=== PATIENT | female | born 1980 | race Caucasian/White ===

== ENCOUNTER 2024-06-16 14:23 | Outpatient (AMB) | payer MEDICAID, SELFPAY ==
[2024-06-16 14:35] VITALS: BP 116/81; PULSE 78; RESP 18; TEMP 36.9; O2SAT 97; BMI 42.7
--- NOTE | 2024-06-16 14:35 | ORTHONT_ITS ---
Vital signs 06/16/24 14:35 Height 1.78 m Height Method Stated Weight 134.972 kg Weight Measurement Method Standing Scale BMI 42.7 BP 116/81 Blood Pressure Source Automatic Cuff Blood Pressure Location Right Upper Arm Position Sitting Respiration 18 Pulse 78 Pulse Source Monitor Temp 98.5 F Temp Source Temporal Artery Scan Pulse Oximetry (%) 97 Oxygen Delivery Method Room Air Med/Allergies Allergies & Medications Allergies AUGMENTIN Allergy (Intermediate, Uncoded 06/16/24 14:37) HIVES PERCOCET Allergy (Intermediate, Uncoded 06/16/24 14:37) HIVES Medication Reconciliation levothyroxine 150 mcg capsule 150 mcg PO QDAY 02/14/24 [History Confirmed 06/16/24] rivaroxaban 15 mg tablet (Xarelto) 15 mg PO QDAY 06/16/24 [History Confirmed 06/16/24] Subjective Visit Visit for: follow up visit and knee Immunization / Flu Flu Vaccine in the Last 12 Months: No Flu Vaccine Exclusion Criteria: No Exclusion Criteria History of Present Illness Chief complaint: FOLLOW UP Ptient is a 44yo female with right knee pain. She has had one injection 2 years ago and it helps well. She has a family history of arthritis. She has tried meloxicam and pt previously. Her right knee has improved significantly but she has severe plantar fascitis currently. Personal History Red flag PMH: Blood thinners and BMI Pain Pain level (0-10): 2 Pain duration: ALL DAYS Pain location: inside (medial), outside (lateral), anterior and posterior Pain quality: aching Pain timing: increases with activity Associated signs & symptoms: none Ambulatory data Ambulatory device: none Treatments Improvement with previous injections: No Improvement with PT: No Improvement with NSAIDS: n/a Review of Systems Review of Systems: All systems negative unless otherwise noted in HPI. Exam Exam Patient is in no acute distress and is cooperative with the examination today. Breathing is nonlabored. Patient has a normal mood and affect. Bilateral extremities were evaluated and demonstrates sensation intact to light touch. Palpable pedal pulses are present. No significant edema is present. Bilateral hips were examined. The patient has no pain with log roll of the hips. Internal rotation to 30 degrees and external rotation to 30 degrees is painless. Negative FADIR. Left knee was examined today. The left knee is in reasonable alignment. Range of motion from 0-120 degrees. Knee is stable to varus and valgus as well as AP translation with <5mm. Patient has a negative McMurrays. There is no pain with patellofemoral compression and no crepitus noted. The knee is nontender to palpation. The right knee was also examined. The right knee is in varus a lignment. Range of motion from 0-115 degrees. Knee is stable to varus and valgus as well as AP translation with <5mm. Patient has a negative McMurrays. There is no pain with patellofemoral compression and no crepitus noted. The knee is tender to palpation medially. I sawe her xrays on her phone. It demonstrates significant medial joint space narrowing and complete obliteration of the medial joint space. Assessment and Plan Problem List (1) Arthritis of knee: Status: Acute Plan: Patient is a 43 year old female with right knee pain and severe arthritis. We recommend nonoperative treatment given her age. We recommend NSAIDs, brace, w eightloss, and injections. We recommend nonoperative treatment and a home exercise program for her plantar fascitis. (2) Pain in right knee: Status: Acute (3) Plantar fasciitis: Status: Acute Plan: We discussed the home exercise program and anti-inflammatories for plantar fasciitis Office Procedures GNS Level of Care Nursing/Assessment Patient Status: Established Patient Nursing Assessment/Reassesment: Medication Reconciliation, Update PMH in EMR and Vital Signs Coordination of Care: Complex Care and Chronic Disease 1-5, Education Complex Pt/Fam, Consent,records obtained, informed consent, Results/Orders obtained and Staff clarify orders Established Patient Charge Established Patient Point Assignment: 95 Established Patient Point Charge: EP Level 3 (80-115) Past Medical History Past Medical History Have you ever been diagnosed with any of the following: Respiratory Problems Cough: No Smoking: No Endocrine Problems Hypothyroidism: Yes
== END 2024-06-16 14:53 | disposition home or self-care (01) ==
LOC: HODSRG 14:23
PROVIDERS: PCP Podiatrist Foot & Ankle Surgery; Referring Provider Podiatrist Foot & Ankle Surgery; Supervising Provider Orthopaedic Surgery Adult Reconstructive Orthopaedic Surgery; Visit Provider Orthopaedic Surgery Adult Reconstructive Orthopaedic Surgery
DX: M17.10 Unilateral primary osteoarthritis, unspecified knee (principal); M25.561 Pain in right knee; M17.11 Unilateral primary osteoarthritis, right knee; M72.2 Plantar fascial fibromatosis
CPT/HCPCS: 99213; G0463

== ENCOUNTER 2024-12-15 14:27 | Outpatient (AMB) | payer MEDICAID, SELFPAY ==
[2024-12-15 14:39] VITALS: BP 112/72; PULSE 78; RESP 18; TEMP 36.6; O2SAT 98; BMI 42.3
--- NOTE | 2024-12-15 14:39 | ORTHONT_ITS ---
Vital signs 12/15/24 14:39 Height 1.78 m Height Method Stated Weight 133.895 kg Weight Measurement Method Standing Scale BMI 42.3 BP 112/72 Blood Pressure Source Automatic Cuff Blood Pressure Location Left Upper Arm Position Sitting Respiration 18 Pulse 78 Pulse Source Monitor Temp 97.8 F Temp Source Temporal Artery Scan Pulse Oximetry (%) 98 Oxygen Delivery Method Room Air Med/Allergies Allergies & Medications Allergies AUGMENTIN Allergy (Intermediate, Uncoded 12/15/24 14:40) HIVES PERCOCET Allergy (Intermediate, Uncoded 12/15/24 14:40) HIVES Medication Reconciliation levothyroxine 150 mcg capsule 150 mcg PO QDAY 02/14/24 [History Confirmed 12/15/24] rivaroxaban 15 mg tablet (Xarelto) 15 mg PO QDAY 06/16/24 [History Confirmed 12/15/24] Exam Exam Patient is in no acute distress and is cooperative with the examination today. Breathing is nonlabored. Patient has a normal mood and affect. Bilateral extremities were evaluated and demonstrates sensation intact to light touch. Palpable pedal pulses are present. No significant edema is present. Bilateral hips were examined. The patient has no pain with log roll of the hips. Internal rotation to 30 degrees and external rotation to 30 degrees is painless. Negative FADIR. Left knee was examined today. The left knee is in reasonable alignment. Range of motion from 0-120 degrees. Knee is stable to varus and valgus as well as AP translation with <5mm. Patient has a negative McMurrays. There is no pain with patellofemoral compression and no crepitus noted. The knee is nontender to palpation. The right knee was also examined. The right knee is in varus alignment. Range of motion from 0-115 degrees. Knee is stable to varus and valgus as well as AP translation with <5mm. Patient has a negative McMurrays. There is no pain with patellofemoral compression and no crepitus noted. The knee is tender to palpation medially. I sawe her xrays on her phone. It demonstrates significant medial joint space narrowing and complete obliteration of the medial joint space. Assessment and Plan Problem List (1) Arthritis of knee: Status: Acute Plan: Patient is a 43 year old female with right knee pain and severe arthritis. We recommend nonoperative treatment given her age. We recommend NSAIDs, brace, weightloss, and injections. She would like a new cortisone injection today. Recommend knee cortisone injection as patient would like to proceed with conservative treatment at this time. The risks and benefits of the procedure were reviewed with the patient and patient gave verbal consent to continue with the procedure. Procedure: performed by Dr. Wright Using sterile technique the Right knee was thoroughly prepped with alcohol, and approximately 1 cc of Kenalog 40 mg/mL and 4 cc of 1% lidocaine was injected without resistance into the medial tibial femoral joint space. The patient tolerated the procedure. (2) Pain in right knee: Status: Acute (3) Plantar fasciitis: Status: Acute Plan: We discussed the home exercise program and anti-inflammatories for plantar fasciitis Office Procedures GNS Level of Care Nursing/Assessment Patient Status: Established Patient Nursing Assessment/Reassesment: Medication Reconciliation, Update PMH in EMR and Vital Signs Coordination of Care: Complex Care and Chronic Disease 1-5, Education Complex Pt/Fam, Consent,records obtained, informed consent, Results/Orders obtained and Staff clarify orders Established Patient Charge Established Patient Point Assignment: 95 Established Patient Point Charge: EP Level 3 (80-115) Surgical Proc/IM SQ injection Major Surgical Procedure: Yes (KNEE INJECTION) Medication Given Medication Given Medication Given: Yes Documented Dose Given: 4 Route: Infiitration Medication Given Medication Given Medication Given: Yes Documented Dose Given: 1 Route: Infiitration Office Meds Xylocaine 10 mg/mL (1 %) injection solution Performing Provider: Jude Wright MD Performing Location: [facility] Administered by: Jude Wright MD on 12/15/24 14:51 Dose Route Admin Location Dispensed Lot Number Expiration Date [facility] Manager Application Development 20 mL Infiltration 20 mL [id number] 04/27/28 87506-971-95 [facility] triamcinolone acetonide 40 mg/mL suspension for injection Performing Provider: Jdue Wright MD Performing Location: [facility] Administered by: Jude Wright MD on 12/15/24 14:51 Dose Route Admin Location Dispensed Lot Number Expiration Date [facility] Manager Application Development 40 mg intra-articular KNEE 1 mL [id number] 07/27/26 9811-4439-16 [facility] Intake Visit Data Collection New Patient or Established: Established Patient (seen at [facility] within 3 years) Reason for Visit:: FOLLOW UP Seen by Clinical Staff ONLY (RN/MA): No PCP or OBGYN visit in last 3 months: Yes Hx Now: No Do You Feel Safe at Home: Yes Authorities Contacted: N/A Questionairres Past Medical History Past Medical History Have you ever been diagnosed with any of the following: Respiratory Problems Cough: No Smoking: No Endocrine Problems Hypothyroidism: Yes Subjective Visit Visit for: follow up visit Immunization / Flu Flu Vaccine in the Last 12 Months: No Flu Vaccine Exclusion Criteria: No Exclusion Criteria History of Present Illness Chief complaint: Right knee pain Genia is a pleasant 44-year-old female with severe right knee arthritis. We have tried cortisone injections in the past. Her last cortisone injection worked for over 7 months. She would like a new cortisone injections at Pain Pain level (0-10): 0 Ambulatory data Ambulatory device: none Treatments Improvement with previous injections: No Improvement with PT: No Improvement with NSAIDS: no Review of Systems Review of Systems: All systems negative unless otherwise noted in HPI.
== END 2024-12-15 15:00 | disposition home or self-care (01) ==
LOC: HODSRG 14:27
PROVIDERS: PCP Podiatrist Foot & Ankle Surgery; Referring Provider Podiatrist Foot & Ankle Surgery; Supervising Provider Orthopaedic Surgery Adult Reconstructive Orthopaedic Surgery; Visit Provider Orthopaedic Surgery Adult Reconstructive Orthopaedic Surgery
DX: M17.11 Unilateral primary osteoarthritis, right knee (principal); M25.561 Pain in right knee; M72.2 Plantar fascial fibromatosis
CPT/HCPCS: 20610; 99213; J3301; J3490; G0463